=== PATIENT | male | born 1960 | race Caucasian/White ===

== ENCOUNTER 2020-05-06 15:27 | Emergency (ER) | payer MEDICARE, OTHER ==
[~2020-05-06] VITALS: Ht 175.3 cm; Wt 70.9 kg
[2020-05-06 16:10] LABS: BASO # 0.1 10^3/uL (0.0-0.2); BASO % 0.6 % (0.0-1.0); EOS % 0.1 % (0.0-3.0); HEMATOCRIT 47.9 % (42.0-52.0); LYMPH # 0.9 10^3/uL (1.5-5.0); LYMPH % 10.8 % (24.0-44.0); MEAN CORPUSCULAR HEMOGLOBIN 33.9 pg (27.0-33.0); MEAN CORPUSCULAR HGB CONC 35.5 g/dl (32.0-36.5); MEAN CORPUSCULAR VOLUME 95.6 fl (80.0-96.0); MONO % 11.6 % (0.0-5.0); NEUTROPHILS # 6.5 10^3/uL (1.5-8.5); NEUTROPHILS % 76.5 % (36.0-66.0); PLATELET COUNT, AUTOMATED 132 10^3/uL (150-450); RED BLOOD COUNT 5.01 10^6/uL (4.30-6.10); WHITE BLOOD COUNT 8.5 10^3/uL (4.0-10.0)
[2020-05-06 16:19] LABS: INR 1.08; PROTHROMBIN TIME 14.2 SECONDS (11.8-14.0)
[2020-05-06 16:20] LABS: PARTIAL THROMBOPLASTIN TIME 27.2 SECONDS (25.0-38.4)
[2020-05-06 16:43] LABS: BLOOD UREA NITROGEN 6 MG/DL (7-18); CARBON DIOXIDE LEVEL 31 MEQ/L (21-32); CHLORIDE LEVEL 99 MEQ/L (98-107); CK-MB VALUE MASS < 1.0 NG/ML (<3.6); CPK CREATINE PHOSPHOKINASE 50 U/L (39-308); CREATININE FOR GFR 0.82 MG/DL (0.70-1.30); ETHYL ALCOHOL (ETHANOL) 0.014 % (0.000-0.010); GLOMERULAR FILTRATION RATE > 60.0 (>49); GLUCOSE, FASTING 126 MG/DL (70-100); MAGNESIUM LEVEL 1.7 MG/DL (1.8-2.4); POTASSIUM SERUM 3.1 MEQ/L (3.5-5.1); SODIUM LEVEL 138 MEQ/L (136-145); TROPONIN I < 0.02 NG/ML (< 0.10)
[2020-05-06 16:50] LABS: LIPASE 154 U/L (73-393)
[2020-05-06] MEDS ORDERED: POTASSIUM CHLORIDE 10 MEQ SR TABLET PO ONE (17:00)
[2020-05-06] MEDS ORDERED: MAG SULF 1GM/100ML (MAG RUN) 1 GM in IV 1 EA IV ONE (17:00)
[2020-05-06] MEDS ORDERED: ISOVUE-370 76% 100ML VIAL As Ordered ONE (18:00)
[2020-05-06] MEDS ORDERED: GI COCKTAIL 50ML BTL(HYOSCYAMINE/MAALOX/LIDOCAINE VISCOUS)(1:3:1) PO ONE (18:15)
[2020-05-06 18:21] LABS: ALBUMIN 3.6 GM/DL (3.2-5.2); ALT/SGPT 134 U/L (12-78); BILIRUBIN,DIRECT 0.4 MG/DL (0.0-0.2); TOTAL PROTEIN 8.7 GM/DL (6.4-8.2)
[2020-05-06] MEDS ORDERED: PRIL20TA2 PO (18:36)
[2020-05-06] MEDS ORDERED: SUCR1TA PO (18:36)
[2020-05-06] MEDS ORDERED: MAGN250T6 PO (18:36)
--- NOTE | 2020-05-06 18:45 | REPVR ---
PROCEDURE INFORMATION: Exam: CT Abdomen And Pelvis With Contrast Exam date and time: 05/06/2020 6:14 PM Age: 60 years old Clinical indication: Abdominal pain; Generalized TECHNIQUE: Imaging protocol: Computed tomography of the abdomen and pelvis with intravenous contrast. Radiation optimization: All CT scans at this facility use at least one of these dose optimization techniques: automated exposure control; mA and/or kV adjustment per patient size (includes targeted exams where dose is matched to clinical indication); or iterative reconstruction. Contrast material: ISOVUE 370; Contrast volume: 100 ml; Contrast route: INTRAVENOUS (IV); COMPARISON: No relevant prior studies available. FINDINGS: Lungs: There is minimal bibasilar atelectasis or scar. Liver: There is mild diffuse fatty liver change. Gallbladder and bile ducts: Normal. No calcified stones. No ductal dilation. Pancreas: Normal. No ductal dilation. Spleen: Normal. No splenomegaly. Adrenals: Normal. No mass. Kidneys and ureters: Small 2 mm nonobstructing left renal calculus. No hydronephrosis. Tiny peripheral hypodensity in the posterior aspect of the lower left kidney which has fat density consistent with a tiny angiomyolipoma. Stomach and bowel: No bowel dilatation to indicate obstruction. Peristalsis likely accounts for mild narrowing and appearance of mild wall thickening in a segment of the rectum and sigmoid colon. Appendix: The appendix is unremarkable. The appearance of minimal periappendiceal fat stranding on axial images is shown to be volume averaging on the coronal and sagittal reformatted images. Intraperitoneal space: Unremarkable. No free air. No significant fluid collection. Vasculature: There is calcified atherosclerotic plaque in the abdominal aorta and medium-sized arteries in the abdomen and pelvis. No aortic aneurysm. The iliac arteries are tortuous. Lymph nodes: Unremarkable. No enlarged lymph nodes. Bladder: Unremarkable as visualized. Reproductive: Small prostatic calcifications. Bones/joints: There is moderate bilateral hip osteoarthritis. There are degenerative changes with partial fusion at the sacroiliac joints. No acute osseous abnormality. Soft tissues: Small noninflamed fat containing umbilical hernia. Small noninflamed fat containing bilateral inguinal hernias. IMPRESSION: 1. Mild diffuse fatty liver change. 2. No bowel obstruction. Peristalsis likely accounts for mild narrowing and appearance of mild wall thickening in a segment of the rectum and sigmoid colon. 3. Small nonobstructing left renal calculus. 4. 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 No further imaging follow-up necessary. 5. Small noninflamed fat containing umbilical and bilateral inguinal hernias. Electronically signed by: Lindsey Green On 05/06/2020 18:44:57 PM
[2020-05-06 19:03] VITALS: BP 154/93
--- NOTE | 2020-05-22 10:52 | ECGEPIP ---
[facility] - ED Test Date: 2020-05-06 Pat Name: ELISABET SALINAS Department: Room: - Gender: Male [employer] [place]: : 1960 Requested By: RODNEY Lopez Order Number: [id number] Reading MD: George Casanova Measurements Intervals [place] Rate: 86 P: 34 OR: 136 QRS: -9 QRSD: 91 T: 24 QT: 361 QTc: 433 Interpretive Statements NORMAL SINUS RHYTHM SEE SCANNED DOWNTIME REPORT
--- NOTE | 2020-06-01 15:16 | REP ---
NONCONTRAST CT OF THE HEAD CLINICAL: Syncope. TECHNIQUE: Axial noncontrast images from the skull base to the vertex with coronal reformations. FINDINGS: Atrophy with periventricular leukomalacia and microvascular ischemic changes noted. Ventricles are symmetric. Paige-white differentiation is maintained. No acute intracranial hemorrhage, mass, or mass effect. No extra-axial fluid collection. Sinuses are clear. IMPRESSION: Age-related atrophy and microvascular ischemic changes. No acute intracranial pathology appreciated. MTDD
--- NOTE | 2020-06-01 15:17 | REP ---
CERVICAL SPINE CT WITHOUT CONTRAST CLINICAL: Fall. Syncope. TECHNIQUE: Axial noncontrast images from the skull base to the thoracic inlet with coronal and sagittal reformations. FINDINGS: Alignment and lordosis maintained. No acute fracture/compression injury or subluxation. Early advanced multilevel degenerative changes include endplate sclerosis, osteophytosis, disc space narrowing, and facet changes. Spinal canal is patent. Posterior elements and spinous processes are intact. Paravertebral soft tissues are normal. IMPRESSION: No acute fracture/compression injury or subluxation. Early advanced multilevel degenerative spondylosis. MTDD
--- NOTE | 2020-06-01 15:18 | REP ---
PORTABLE CHEST X-RAY CLINICAL: Syncope/near syncopal episode. COMPARISON: None. FINDINGS: Mediastinum and cardiac silhouette are within normal limits. Lung mcgarry demonstrate chronic appearing changes. No focal consolidation, obvious effusion, or pneumothorax. Subtle basilar atelectasis cannot be excluded. Normal osseous structures. IMPRESSION: Chronic appearing changes, although mild basilar atelectasis cannot be excluded. MTDD
== END 2020-05-06 19:06 | disposition home or self-care (01) ==
LOC: M ED 15:27
DX: R55 Syncope and collapse (principal); E83.42 Hypomagnesemia; E87.6 Hypokalemia; Z79.899 Other long term (current) drug therapy
CPT/HCPCS: 70450; 71045; 72125; 74177; 80048; 80076; 82550; 82553; 83690; 83735; 84439; 84443; 84484; 85025; 85610; 85730; 93005; 93041; 94760; 96365; 99284; G0480; J3475; Q9967

== ENCOUNTER → 2021-04-04 | Outpatient (CLI) | payer MEDICARE ==
[~2021-04-04] MED LIST: MAGN250T6 PO; PRIL20TA2 PO; SUCR1TA PO
[2021-04-04 13:44] LABS: HEMATOCRIT 47.1 % (42.0-52.0); MEAN CORPUSCULAR HEMOGLOBIN 34.3 pg (27.0-33.0); MEAN CORPUSCULAR VOLUME 101.1 fl (80.0-96.0); PLATELET COUNT, AUTOMATED 208 10^3/uL (150-450); RED BLOOD COUNT 4.66 10^6/uL (4.30-6.10); WHITE BLOOD COUNT 5.8 10^3/uL (4.0-10.0)
[2021-04-04 14:10] LABS: ALBUMIN 2.9 GM/DL (3.2-5.2); ALT/SGPT 48 U/L (12-78); BLOOD UREA NITROGEN 5 MG/DL (7-18); CALCIUM LEVEL 9.2 MG/DL (8.8-10.2); CARBON DIOXIDE LEVEL 32 MEQ/L (21-32); CHLORIDE LEVEL 103 MEQ/L (98-107); CREATININE FOR GFR 0.58 MG/DL (0.70-1.30); GLOMERULAR FILTRATION RATE > 60.0 (>49); GLUCOSE, FASTING 98 MG/DL (70-100); POTASSIUM SERUM 4.5 MEQ/L (3.5-5.1); SODIUM LEVEL 138 MEQ/L (136-145); TOTAL PROTEIN 7.8 GM/DL (6.4-8.2)
[2021-04-04 15:03] LABS: HIV 1&2 SCREEN CENTAUR NEGATIVE (NEGATIVE)
[2021-04-04 15:04] LABS: HEPATITIS B SURFACE ANTIBODY POSITIVE (POSITIVE)
[2021-04-04 15:17] LABS: HEPATITIS B SURFACE ANTIGEN POSITIVE (NEGATIVE)
[2021-04-09 16:09] LABS: HEPATITIS A IgG TOTAL Positive (Negative); HEPATITIS B CORE ANTIBODY IGG Positive (Negative); HEPATITIS C QUANTITATION 4510000 IU/mL (.); HEPATITIS C VIRUS GENOTYPE 1b (.)
== END ==
LOC: M PLALAB 11:27
PROVIDERS: ATTEND Nurse Practitioner Family
DX: R76.8 Other specified abnormal immunological findings in serum (principal)
CPT/HCPCS: 36415; 80053; 85027; 86704; 86706; 86708; 87340; 87389; 87522; 87902; G0463

== ENCOUNTER → 2021-04-05 | Outpatient (CLI) | payer MEDICARE | LOC: M PLALAB 11:32 | PROVIDERS: ATTEND Nurse Practitioner Family | DX: R76.8 Other specified abnormal immunological findings in serum (principal) ==

== ENCOUNTER 2021-10-16 11:15 | Inpatient (IN) | payer MEDICARE ==
[~2021-10-16] VITALS: Ht 177.8 cm; Wt 65.0 kg
[2021-10-16] MEDS ORDERED: ONDANSETRON 4MG/2ML VIAL IV ONE (15:35)
[2021-10-16] MEDS ORDERED: NS 1,000 ML IV ONE (15:35)
[2021-10-16 16:10] LABS: BASO % 0.2 % (0.0-1.0); HEMATOCRIT 41.7 % (42.0-52.0); HEMOGLOBIN 14.8 g/dl (13.5-17.5); LYMPH # 1.2 10^3/uL (1.5-5.0); LYMPH % 12.3 % (24.0-44.0); MEAN CORPUSCULAR HEMOGLOBIN 35.7 pg (27.0-33.0); MEAN CORPUSCULAR HGB CONC 35.5 g/dl (32.0-36.5); MEAN CORPUSCULAR VOLUME 100.7 fl (80.0-96.0); MONO # 1.3 10^3/uL (0.0-0.8); MONO % 13.3 % (2.0-8.0); NEUTROPHILS # 7.1 10^3/uL (1.5-8.5); NEUTROPHILS % 73.8 % (36.0-66.0); PLATELET COUNT, AUTOMATED 132 10^3/uL (150-450); RED BLOOD COUNT 4.14 10^6/uL (4.30-6.10); WHITE BLOOD COUNT 9.6 10^3/uL (4.0-10.0)
[2021-10-16 16:38] LABS: ALBUMIN 2.7 GM/DL (3.2-5.2); ALT/SGPT 53 U/L (12-78); BILIRUBIN,DIRECT 1.7 MG/DL (0.0-0.2); BILIRUBIN,TOTAL 5.1 MG/DL (0.2-1.0); BLOOD UREA NITROGEN 16 MG/DL (7-18); CALCIUM LEVEL 9.2 MG/DL (8.8-10.2); CARBON DIOXIDE LEVEL 32 MEQ/L (21-32); CHLORIDE LEVEL 88 MEQ/L (98-107); CREATININE FOR GFR 1.13 MG/DL (0.70-1.30); GLOMERULAR FILTRATION RATE > 60.0 (>49); GLUCOSE, FASTING 134 MG/DL (70-100); LIPASE 95 U/L (73-393); POTASSIUM SERUM 2.7 MEQ/L (3.5-5.1); SODIUM LEVEL 132 MEQ/L (136-145); TOTAL PROTEIN 8.6 GM/DL (6.4-8.2)
[2021-10-16] MEDS ORDERED: KCL 20MEQ IN 100ML SWI (KRUN) 20 MEQ in IV 1 EA IV ONE ×2 (16:40)
[2021-10-16] MEDS ORDERED: POTASSIUM CHLORIDE 10MEQ SR TABLET PO ONE (16:40)
[2021-10-16] MEDS: KCL 10MEQ/100ML SWI (KRUN) X 2 DOSES (20MEQ TOTAL) IV SCH ×4 (17:10→18:24)
[2021-10-16] MEDS ORDERED: ISOVUE-370 76% 100ML VIAL As Ordered ONE (17:23)
[2021-10-16] MEDS ORDERED: HOME MED LIST COMPLETE! XX SCH (19:55)
[2021-10-16] MEDS ORDERED: LORazepam 2 MG TAB PO PRN (21:30)
[2021-10-16] MEDS ORDERED: ACETAMINOPHEN TAB 650MG DOSE (2X325MG) PO PRN (21:30)
[2021-10-16] MEDS ORDERED: MOM 30ML SUSPENSION UDC PO PRN (21:30)
[2021-10-16 22:00] VITALS: BP 114/70
[2021-10-16] MEDS ORDERED: cefTRIAXone SOD 1 GM in D5W MINI-BAG PLUS 50 ML IV SCH (23:00)
[2021-10-16] MEDS: THIAMINE 100 MG TAB PO SCH (23:28)
[2021-10-17 00:12] VITALS: BP 114/70
[2021-10-17] MEDS ORDERED: NS 1,000 ML IV SCH (01:10)
[2021-10-17] MEDS: KCL 10MEQ/100ML SWI (KRUN) 10 MEQ in IV 1 EA IV SCH ×4 (01:44→05:06)
[2021-10-17] MEDS ORDERED: POTASSIUM CHLORIDE 10MEQ SR TABLET PO ONE ×2 (02:00→07:30)
[2021-10-17 05:11] VITALS: BP 104/62
[2021-10-17 05:23] VITALS: BP 104/62
[2021-10-17 05:28] LABS: HEMATOCRIT 32.1 % (42.0-52.0); MEAN CORPUSCULAR HEMOGLOBIN 36.3 pg (27.0-33.0); MEAN CORPUSCULAR HGB CONC 35.5 g/dl (32.0-36.5); MEAN CORPUSCULAR VOLUME 102.2 fl (80.0-96.0); PLATELET COUNT, AUTOMATED 102 10^3/uL (150-450); RED BLOOD COUNT 3.14 10^6/uL (4.30-6.10); WHITE BLOOD COUNT 8.3 10^3/uL (4.0-10.0)
[2021-10-17 05:29] LABS: HEMOGLOBIN 11.4 g/dl (13.5-17.5)
[2021-10-17 06:07] LABS: ALT/SGPT 36 U/L (12-78); BILIRUBIN,TOTAL 2.8 MG/DL (0.2-1.0); BLOOD UREA NITROGEN 12 MG/DL (7-18); CALCIUM LEVEL 7.9 MG/DL (8.8-10.2); CARBON DIOXIDE LEVEL 32 MEQ/L (21-32); CHLORIDE LEVEL 96 MEQ/L (98-107); CREATININE FOR GFR 0.74 MG/DL (0.70-1.30); GLOMERULAR FILTRATION RATE > 60.0 (>49); GLUCOSE, FASTING 91 MG/DL (70-100); POTASSIUM SERUM 3.3 MEQ/L (3.5-5.1); SODIUM LEVEL 136 MEQ/L (136-145); TOTAL PROTEIN 6.6 GM/DL (6.4-8.2)
[2021-10-17] MEDS: THIAMINE 100 MG TAB PO SCH (08:47)
[2021-10-17] MEDS ORDERED: ENOXAPARIN 40MG/0.4ML SYRINGE (J1650 PER 10MG) SC SCH (09:00)
[2021-10-17] MEDS ORDERED: FOLIC ACID 1 MG TAB PO SCH (09:00)
[2021-10-17] MEDS ORDERED: MULTIVITAMINS/MINERALS THERAP 1 TAB PO SCH (09:00)
[2021-10-17] MEDS ORDERED: DOCUSATE SODIUM 100MG CAPSULE PO SCH (09:00)
[2021-10-17 14:00] VITALS: BP 113/76
[2021-10-17] MEDS ORDERED: FOLI1TAB11 PO (14:17)
[2021-10-17] MEDS ORDERED: THIA100TA PO (14:17)
[2021-10-17] MEDS ORDERED: VITMTA PO (14:17)
[2021-10-17] MEDS ORDERED: OMEP40CA4 PO (14:17)
[2021-10-17 15:29] LABS: BLOOD UREA NITROGEN 12 MG/DL (7-18); CALCIUM LEVEL 8.3 MG/DL (8.8-10.2); CARBON DIOXIDE LEVEL 32 MEQ/L (21-32); CHLORIDE LEVEL 98 MEQ/L (98-107); CREATININE FOR GFR 0.76 MG/DL (0.70-1.30); GLOMERULAR FILTRATION RATE > 60.0 (>49); GLUCOSE, FASTING 83 MG/DL (70-100); POTASSIUM SERUM 3.6 MEQ/L (3.5-5.1); SODIUM LEVEL 136 MEQ/L (136-145)
[2021-10-17 17:34] LABS: MAGNESIUM LEVEL 1.5 MG/DL (1.7-2.2)
[2021-10-18] MEDS ORDERED: MAGN400C2 PO (13:04)
[2021-10-18] MEDS ORDERED: SUCR1TAB56 PO (13:11)
== END 2021-10-17 19:01 | disposition home or self-care (01) | DRG 433 ==
LOC: M ED 11:15 → M ED INP 21:30 → M MSPAV 10-17 00:16
PROVIDERS: ADMIT Family Medicine; ATTEND Internal Medicine
DX: K70.10 Alcoholic hepatitis without ascites (principal); E87.1 Hypo-osmolality and hyponatremia; E87.6 Hypokalemia; F10.10 Alcohol abuse, uncomplicated; D69.59 Other secondary thrombocytopenia; D53.9 Nutritional anemia, unspecified; K70.30 Alcoholic cirrhosis of liver without ascites; K80.20 Calculus of gallbladder without cholecystitis without obstruction

== ENCOUNTER → 2021-10-25 | Outpatient (CLI) | payer MEDICARE ==
[~2021-10-25] MED LIST changes: +FOLI1TAB11 PO; +MAGN400C2 PO; +OMEP40CA4 PO; +SUCR1TAB56 PO; +THIA100TA PO; +VITMTA PO
[2021-10-25 13:10] LABS: HEMATOCRIT 39.2 % (42.0-52.0)
[2021-10-25 13:15] LABS: BASO # 0.1 10^3/uL (0.0-0.2); BASO % 0.8 % (0.0-1.0); EOS % 0.1 % (0.0-3.0); HEMATOCRIT 38.9 % (42.0-52.0); HEMOGLOBIN 13.4 g/dl (13.5-17.5); LYMPH # 1.5 10^3/uL (1.5-5.0); LYMPH % 19.9 % (24.0-44.0); MEAN CORPUSCULAR HEMOGLOBIN 35.7 pg (27.0-33.0); MEAN CORPUSCULAR HGB CONC 34.4 g/dl (32.0-36.5); MEAN CORPUSCULAR VOLUME 103.7 fl (80.0-96.0); MONO # 0.8 10^3/uL (0.0-0.8); MONO % 10.3 % (2.0-8.0); NEUTROPHILS # 5.1 10^3/uL (1.5-8.5); NEUTROPHILS % 68.6 % (36.0-66.0); PLATELET COUNT, AUTOMATED 238 10^3/uL (150-450); RED BLOOD COUNT 3.75 10^6/uL (4.30-6.10); WHITE BLOOD COUNT 7.4 10^3/uL (4.0-10.0)
[2021-10-25 13:23] LABS: INR 1.14
[2021-10-25 13:24] LABS: PARTIAL THROMBOPLASTIN TIME 32.9 SECONDS (25.9-37.0)
[2021-10-25 14:36] LABS: CHOLESTEROL LEVEL 73 MG/DL (<200); CHOLESTEROL RISK RATIO 2.085 (<5); FERRITIN 976 NG/ML (26-388); FREE T4 1.05 NG/DL (0.76-1.46); HDL CHOLESTEROL 35 MG/DL (>40); HEPATITIS B CORE ANTIBODY IGM NEGATIVE (NEGATIVE); HEPATITIS B SURFACE ANTIBODY NEGATIVE (POSITIVE); HIV 1&2 SCREEN CENTAUR NEGATIVE (NEGATIVE); LDL CHOLESTEROL 22 MG/DL (<100); NON-HDL-C 38 MG/DL; PTH INTACT 37.1 PG/ML (18.5-88.0); TOTAL 25(OH) VITAMIN D 20.6 NG/ML (30.0-100.0); TRIGLYCERIDES LEVEL 80 MG/DL (<150); VITAMIN B12 LEVEL 891 PG/ML (247-911)
[2021-10-25 15:00] LABS: HEPATITIS B SURFACE ANTIGEN POSITIVE (NEGATIVE)
[2021-10-29 07:10] LABS: HBV HBV DNA not detected IU/mL (.); HEPATITIS BE ANTIBODY Positive (Negative); HEPATITIS BE ANTIGEN Negative (Negative); HEPATITIS C QUANTITATION 1520000 IU/mL (.)
== END ==
LOC: M PLALAB 12:04
PROVIDERS: ATTEND Family Medicine
DX: D61.818 Other pancytopenia (principal); F10.10 Alcohol abuse, uncomplicated; K70.30 Alcoholic cirrhosis of liver without ascites; R76.8 Other specified abnormal immunological findings in serum; Z12.5 Encounter for screening for malignant neoplasm of prostate; Z79.899 Other long term (current) drug therapy

== ENCOUNTER → 2022-01-23 | Outpatient (CLI) | payer MEDICARE ==
[2022-01-23 13:39] LABS: BASO # 0.1 10^3/uL (0.0-0.2); BASO % 1.1 % (0.0-1.0); EOS % 0.4 % (0.0-3.0); HEMOGLOBIN 15.3 g/dl (13.5-17.5); LYMPH # 1.5 10^3/uL (1.5-5.0); LYMPH % 27.5 % (24.0-44.0); MEAN CORPUSCULAR HEMOGLOBIN 34.5 pg (27.0-33.0); MEAN CORPUSCULAR HGB CONC 36.4 g/dl (32.0-36.5); MEAN CORPUSCULAR VOLUME 94.6 fl (80.0-96.0); MONO # 0.8 10^3/uL (0.0-0.8); MONO % 14.6 % (2.0-8.0); NEUTROPHILS # 3.1 10^3/uL (1.5-8.5); RED BLOOD COUNT 4.44 10^6/uL (4.30-6.10); WHITE BLOOD COUNT 5.6 10^3/uL (4.0-10.0)
[2022-01-23 14:15] LABS: ALBUMIN 2.9 GM/DL (3.2-5.2); BILIRUBIN,DIRECT 1.1 MG/DL (0.0-0.2); BILIRUBIN,TOTAL 2.6 MG/DL (0.2-1.0); TOTAL PROTEIN 8.4 GM/DL (6.4-8.2)
[2022-01-23 14:53] LABS: PLATELET COUNT, AUTOMATED 90 10^3/uL (150-450)
[2022-01-30 03:06] LABS: CALPROTECTIN STOOL 85 ug/g (0-120); H PYLORI STOOL ANTIGEN Negative (Negative); PANCREATIC ELASTASE STOOL 420 (>200)
== END ==
LOC: M PLALAB 11:38
PROVIDERS: ATTEND Physician Assistant
DX: D61.818 Other pancytopenia (principal); R19.7 Diarrhea, unspecified; E55.9 Vitamin D deficiency, unspecified; K70.30 Alcoholic cirrhosis of liver without ascites; F10.10 Alcohol abuse, uncomplicated

== ENCOUNTER → 2022-02-26 | Outpatient (CLI) | payer MEDICARE ==
[2022-02-26 15:54] LABS: BILIRUBIN,DIRECT 0.4 MG/DL (0.0-0.2); BILIRUBIN,TOTAL 0.6 MG/DL (0.2-1.0)
[2022-02-28 14:08] LABS: HEPATITIS B CORE ANTIBODY IGG Positive (Negative); HEPATITIS BE ANTIBODY Positive (Negative); HEPATITIS BE ANTIGEN Negative (Negative); HEPATITIS C QUANTITATION HCV Not Detected IU/mL (.)
== END ==
LOC: M PLALAB 11:32
PROVIDERS: ATTEND Internal Medicine Infectious Disease
DX: B18.1 Chronic viral hepatitis B without delta-agent (principal); B18.2 Chronic viral hepatitis C; Z79.899 Other long term (current) drug therapy

== ENCOUNTER → 2022-04-13 | Outpatient (CLI) | payer MEDICARE ==
[~2022-04-13] MED LIST changes: +B-COCAP8 PO; +EPCL1TAB PO; +OMEP1CAP73 PO
== END ==
LOC: M LABSMTC 09:58
PROVIDERS: ATTEND Anesthesiology
DX: Z01.812 Encounter for preprocedural laboratory examination (principal); Z20.822 Contact with and (suspected) exposure to COVID-19

== ENCOUNTER 2022-04-15 10:42 | Day surgery (SDC) | payer MEDICARE ==
[~2022-04-15] VITALS: Ht 177.8 cm; Wt 66.2 kg
[~2022-04-15 10:42] MED LIST changes: +LIDOCAINE 2% 100MG/5ML SDV (FOR ANES.) As Ordered ONE; +NS 1,000 ML IV ONE; +fentaNYL 100 MCG/2 ML INJECTION As Ordered ONE; +propofoL 500 MG/50 ML VIAL As Ordered ONE
[2022-04-15] MEDS ORDERED: MIDAZOLAM INJ 2MG/2ML VIAL (J2250 PER 1MG) As Ordered ONE (12:45)
[2022-04-15 13:31] VITALS: BP 120/73
== END 2022-04-15 13:53 | disposition home or self-care (01) ==
LOC: M OPP 10:42
PROVIDERS: ATTEND Internal Medicine Gastroenterology
DX: Z12.11 Encounter for screening for malignant neoplasm of colon (principal); K74.60 Unspecified cirrhosis of liver; D12.6 Benign neoplasm of colon, unspecified; K29.50 Unspecified chronic gastritis without bleeding; K64.8 Other hemorrhoids; I85.10 Secondary esophageal varices without bleeding; K21.00 Gastro-esophageal reflux disease with esophagitis, without bleeding; B19.20 Unspecified viral hepatitis C without hepatic coma; Z79.899 Other long term (current) drug therapy
CPT/HCPCS: 43239; 45385; 88305; 88342; J2250; J3010

== ENCOUNTER → 2022-07-18 | Outpatient (CLI) | payer MEDICARE ==
[~2022-07-18] MED LIST changes: -LIDOCAINE 2% 100MG/5ML SDV (FOR ANES.) As Ordered ONE; -NS 1,000 ML IV ONE; -fentaNYL 100 MCG/2 ML INJECTION As Ordered ONE; -propofoL 500 MG/50 ML VIAL As Ordered ONE
[2022-07-18 13:22] LABS: INR 1.13; PROTHROMBIN TIME 14.7 SECONDS (12.5-14.5)
[2022-07-18 13:23] LABS: PARTIAL THROMBOPLASTIN TIME 28.4 SECONDS (24.8-34.2)
[2022-07-18 13:59] LABS: ALBUMIN 3.5 GM/DL (3.2-5.2); ALKALINE PHOSPHATASE 78 U/L (45-117); ALT/SGPT 62 U/L (12-78); AST/SGOT 120 U/L (7-37); BILIRUBIN,DIRECT 0.5 MG/DL (0.0-0.2); BILIRUBIN,TOTAL 1.1 MG/DL (0.2-1.0); BLOOD UREA NITROGEN 7 MG/DL (7-18); CALCIUM LEVEL 9.6 MG/DL (8.8-10.2); CARBON DIOXIDE LEVEL 29 MEQ/L (21-32); CHLORIDE LEVEL 103 MEQ/L (98-107); CREATININE FOR GFR 0.76 MG/DL (0.70-1.30); GLOMERULAR FILTRATION RATE > 60.0 (>49); GLUCOSE, FASTING 126 MG/DL (70-100); POTASSIUM SERUM 4.6 MEQ/L (3.5-5.1); SODIUM LEVEL 137 MEQ/L (136-145); TOTAL PROTEIN 8.7 GM/DL (6.4-8.2)
[2022-07-18 16:00] LABS: HEPATITIS B SURFACE ANTIGEN POSITIVE (NEGATIVE)
[2022-07-22 08:09] LABS: ANTI-MITOCHONDRIAL ANTIBODY <20.0 Units (0.0-20.0); ANTINUCLEAR ANTIBODIES DIRECT Negative (Negative); HBV HBV DNA not detected IU/mL (.); HEPATITIS BE ANTIBODY Positive (Negative); LIVER-KIDNEY MICROSOMAL ABY <20.1 Units (0.0-20.0)
== END ==
LOC: M LAB 11:50
PROVIDERS: ATTEND Internal Medicine Gastroenterology
DX: K74.60 Unspecified cirrhosis of liver (principal)

== ENCOUNTER → 2022-07-18 | Outpatient (CLI) | payer MEDICARE | LOC: M RAD 10:54 | PROVIDERS: ATTEND Internal Medicine Gastroenterology | DX: K76.0 Fatty (change of) liver, not elsewhere classified (principal); B18.2 Chronic viral hepatitis C; K70.30 Alcoholic cirrhosis of liver without ascites ==

== ENCOUNTER → 2022-07-18 | Outpatient (CLI) | payer MEDICARE ==
[2022-07-18 13:57] LABS: ALBUMIN 3.7 GM/DL (3.2-5.2); ALKALINE PHOSPHATASE 83 U/L (45-117); ALT/SGPT 62 U/L (12-78); AST/SGOT 112 U/L (7-37); BILIRUBIN,TOTAL 1.1 MG/DL (0.2-1.0); BLOOD UREA NITROGEN 7 MG/DL (7-18); CALCIUM LEVEL 9.8 MG/DL (8.8-10.2); CARBON DIOXIDE LEVEL 29 MEQ/L (21-32); CHLORIDE LEVEL 102 MEQ/L (98-107); CREATININE FOR GFR 0.76 MG/DL (0.70-1.30); GLOMERULAR FILTRATION RATE > 60.0 (>49); GLUCOSE, FASTING 122 MG/DL (70-100); POTASSIUM SERUM 3.8 MEQ/L (3.5-5.1); SODIUM LEVEL 137 MEQ/L (136-145); TOTAL PROTEIN 8.8 GM/DL (6.4-8.2)
[2022-07-19 23:07] LABS: HEPATITIS C QUANTITATION HCV Not Detected IU/mL (.)
== END ==
LOC: M LAB 11:54
PROVIDERS: ATTEND Internal Medicine Infectious Disease
DX: B18.2 Chronic viral hepatitis C (principal); K70.30 Alcoholic cirrhosis of liver without ascites

== ENCOUNTER 2023-10-11 13:52 | Inpatient (IN) | payer MEDICARE, OTHER ==
[~2023-10-11] VITALS: Ht 177.8 cm; Wt 65.0 kg
[2023-10-11 14:45] LABS: BASO # 0.1 10^3/uL (0.0-0.2); BASO % 0.5 % (0.0-1.0); EOS # 0.1 10^3/uL (0.0-0.5); EOS % 0.5 % (0.0-3.0); HEMATOCRIT 46.1 % (42.0-52.0); HEMOGLOBIN 16.5 g/dl (13.5-17.5); LYMPH # 1.5 10^3/uL (1.5-5.0); LYMPH % 14.5 % (24.0-44.0); MEAN CORPUSCULAR HEMOGLOBIN 34.9 pg (27.0-33.0); MEAN CORPUSCULAR HGB CONC 35.8 g/dl (32.0-36.5); MEAN CORPUSCULAR VOLUME 97.5 fl (80.0-96.0); MONO # 1.1 10^3/uL (0.0-0.8); MONO % 10.4 % (2.0-8.0); NEUTROPHILS # 7.6 10^3/uL (1.5-8.5); NEUTROPHILS % 73.7 % (36.0-66.0); PLATELET COUNT, AUTOMATED 238 10^3/uL (150-450); RED BLOOD COUNT 4.73 10^6/uL (4.30-6.10); WHITE BLOOD COUNT 10.3 10^3/uL (4.0-10.0)
[2023-10-11 14:56] LABS: INR 1.2; PROTHROMBIN TIME 14.9 SECONDS (12.5-14.5)
[2023-10-11 14:57] LABS: PARTIAL THROMBOPLASTIN TIME 28.2 SECONDS (24.8-34.2)
[2023-10-11 15:07] LABS: LIPASE 29 U/L (12-53)
[2023-10-11 15:09] LABS: ALBUMIN 2.5 G/DL (3.2-5.2); ALKALINE PHOSPHATASE 94 U/L (46-116); ALT/SGPT 29 U/L (7.0-40); AST/SGOT 66 U/L (<34); BILIRUBIN,DIRECT 0.7 MG/DL (<0.4); BILIRUBIN,TOTAL 1.5 MG/DL (0.3-1.2); BLOOD UREA NITROGEN 5 MG/DL (9-23); CALCIUM LEVEL 8.2 MG/DL (8.3-10.6); CARBON DIOXIDE LEVEL 28 MMOL/L (20-31); CHLORIDE LEVEL 100 MMOL/L (98-107); CK-MB VALUE MASS < 1.0 NG/ML (<3.6); GLOMERULAR FILTRATION RATE > 60.0 (>49); GLUCOSE, FASTING 128 MG/DL (74-106); MAGNESIUM LEVEL 1.4 MG/DL (1.8-2.4); POTASSIUM SERUM 3.3 MMOL/L (3.5-5.1); SODIUM LEVEL 136 MMOL/L (136-145); TOTAL PROTEIN 7.3 G/DL (5.7-8.2)
[2023-10-11 15:11] LABS: FREE T4 0.85 NG/DL (0.89-1.76); THYROID STIMULATING HORMONE 1.068 uIU/ML (0.55-4.78)
[2023-10-11 15:13] LABS: CPK CREATINE PHOSPHOKINASE 43 U/L (46-171); MB/CK RELATIVE INDEX 2.32 (< OR =4); RSV AMPLIFICATION NEGATIVE (NEGATIVE)
[2023-10-11] MEDS ORDERED: ISOVUE-370 76% 100ML VIAL As Ordered ONE (15:43)
[2023-10-11] MEDS: MAGNESIUM OXIDE 400MG TAB (MAG-OX) PO ONE (16:29)
[2023-10-11] MEDS: POTASSIUM CHLORIDE 10MEQ SR TABLET PO ONE (16:29)
[2023-10-11] MEDS ORDERED: ACETAMINOPHEN TAB 650MG DOSE (2X325MG) PO PRN (17:30)
[2023-10-11] MEDS ORDERED: MOM 30ML SUSPENSION UDC PO PRN (17:30)
[2023-10-11] MEDS ORDERED: MAALOX 30 ML SUSP *UDC PO PRN (17:30)
[2023-10-11] MEDS ORDERED: LORazepam 2 MG TAB PO PRN (17:35)
[2023-10-11] MEDS ORDERED: HOME MED LIST COMPLETE! XX SCH (18:45)
[2023-10-11] MEDS: MAG SULF 1GM/100ML (MAG RUN) 1 GM in IV 1 EA IV ONE (19:04)
[2023-10-11] MEDS: ENOXAPARIN 40MG/0.4ML SYRINGE (J1650 PER 10MG) SC SCH (21:00)
[2023-10-11 21:24] VITALS: BP 153/91
[2023-10-11 21:25] VITALS: BP 153/91; TEMP 98.2; O2SAT 97
[2023-10-11] MEDS: THIAMINE 100 MG TAB PO SCH (21:47)
[2023-10-11] MEDS: POTASSIUM CHLORIDE 10MEQ SR TABLET PO SCH (21:47)
[2023-10-12 05:11] VITALS: BP 152/90; TEMP 98.2; O2SAT 96
[2023-10-12 06:27] LABS: BLOOD UREA NITROGEN 5 MG/DL (9-23); CALCIUM LEVEL 8.6 MG/DL (8.3-10.6); CARBON DIOXIDE LEVEL 29 MMOL/L (20-31); CHLORIDE LEVEL 102 MMOL/L (98-107); CREATININE FOR GFR 0.52 MG/DL (0.70-1.30); GLOMERULAR FILTRATION RATE > 60.0 (>49); GLUCOSE, FASTING 90 MG/DL (74-106); MAGNESIUM LEVEL 1.9 MG/DL (1.8-2.4); POTASSIUM SERUM 4.6 MMOL/L (3.5-5.1); SODIUM LEVEL 136 MMOL/L (136-145)
[2023-10-12 07:41] VITALS: BP 150/87
[2023-10-12] MEDS: FOLIC ACID 1MG TAB PO SCH (07:41)
[2023-10-12] MEDS: MULTIVITAMINS/MINERALS THERAP 1 TAB PO SCH (07:41)
[2023-10-12] MEDS: **hydrALAZINE** 10 MG TAB PO ONE (07:41)
[2023-10-12] MEDS: LOPERAMIDE 2 MG CAPLET PO ONE (09:00)
[2023-10-12] MEDS ORDERED: LOPERAMIDE 2 MG CAPLET PO PRN (09:00)
[2023-10-12] MEDS: LACTOBACILLUS ACIDOPHILUS CAP (BACID) PO SCH (11:55)
[2023-10-12 14:00] VITALS: BP_SYST 124; BP_SYST 136; BP_DIAS 78; BP_DIAS 87; TEMP 96.5; TEMP 98.1; O2SAT 96
[2023-10-12 22:00] VITALS: BP 134/79; TEMP 98.1; O2SAT 97
[2023-10-13 06:00] VITALS: BP 134/84; TEMP 97.5; O2SAT 96
== END 2023-10-13 13:40 | disposition home or self-care (01) | DRG 641 ==
LOC: M ED 13:52 → EDBD 13:52 → M ED INP 17:28 → OBSVTOIN 17:29 → M MSPAV 21:23
PROVIDERS: ADMIT Student in an Organized Health Care Education/Training Program; ATTEND Student in an Organized Health Care Education/Training Program
DX: E87.6 Hypokalemia (principal); I85.10 Secondary esophageal varices without bleeding; R56.9 Unspecified convulsions; E83.42 Hypomagnesemia; K70.30 Alcoholic cirrhosis of liver without ascites; R19.7 Diarrhea, unspecified; F10.10 Alcohol abuse, uncomplicated; Z71.41 Alcohol abuse counseling and surveillance of alcoholic; Z79.899 Other long term (current) drug therapy; Z20.822 Contact with and (suspected) exposure to COVID-19

== ENCOUNTER → 2023-10-30 | Outpatient (CLI) | payer MEDICARE, OTHER | LOC: M RAD 09:21 | PROVIDERS: ATTEND Family Medicine | DX: K70.30 Alcoholic cirrhosis of liver without ascites (principal); K76.0 Fatty (change of) liver, not elsewhere classified ==

== ENCOUNTER 2025-07-13 13:59 | Emergency (ER) | payer OTHER, MEDICARE ==
[~2025-07-13] VITALS: Ht 177.8 cm; Wt 72.7 kg
[~2025-07-13 13:59] MED LIST changes: -B-COCAP8 PO; +VITA1CAP55 PO
[2025-07-13] MEDS: cefTRIAXone SOD 1 GM in DEXTROSE 5% (D5W) ADV/MINI-BAG 50 ML IV ONE (14:45)
[2025-07-13] MEDS: NS (Normal Saline) 0.9% 1,000 ML IV ONE (14:46)
[2025-07-13 14:53] LABS: PLATELET COUNT, AUTOMATED 129 10^3/uL (150-450)
[2025-07-13 15:20] LABS: CALCIUM LEVEL 8.9 MG/DL (8.3-10.6); CARBON DIOXIDE LEVEL 28 MMOL/L (20-31); CHLORIDE LEVEL 102 MMOL/L (98-107); CREATININE FOR GFR 0.58 MG/DL (0.70-1.30); GLOMERULAR FILTRATION RATE > 90.0 (>49); POTASSIUM SERUM 3.5 MMOL/L (3.5-5.1); SODIUM LEVEL 138 MMOL/L (136-145)
[2025-07-13] MEDS ORDERED: PRED10TA2 PO (15:50)
[2025-07-13] MEDS ORDERED: CEPH500C PO (15:50)
[2025-07-13 15:56] VITALS: BP 148/82; TEMP 97.8; O2SAT 99
== END 2025-07-13 16:00 | disposition home or self-care (01) ==
LOC: M ED 13:59
DX: L23.9 Allergic contact dermatitis, unspecified cause (principal); L03.211 Cellulitis of face; Z86.19 Personal history of other infectious and parasitic diseases
CPT/HCPCS: 80048; 83605; 85027; 96361; 96374; 96375; 99284; J0696; J2919